=== PATIENT | male | born 1995 | race Caucasian/White ===

== ENCOUNTER 2020-09-01 07:07 | Emergency (ER) | payer OTHER, SELFPAY ==
[2020-09-01 07:12] VITALS: BMI 26.4
--- NOTE | 2020-09-01 07:45 | ED_ITS ---
HPI - General Adult General Chief complaint: Extremity Injury, Upper Stated complaint: left arm injury today Time Seen by Provider: 09/01/20 07:18 Source: patient Mode of arrival: Ambulatory Limitations: no limitations History of Present Illness HPI narrative: 26-year-old male who was weightlifting this morning doing lifts when he had a sudden onset of discomfort and pain and a tearing sensation to his left elbow. He is concerned that he potentially has torn his biceps. He was evaluated by EMS at the scene. He was placed in a sling but came to the emergency department by private vehicle. No prior injury of than the sling no prior interventions Related Data Previous Rx's Medication Instructions Recorded hydrocodone-acetaminophen 1 tab PO Q4-6H PRN #10 tab 09/01/20 Allergies Allergy/AdvReac Type Severity Reaction Status Date / Time Penicillins Allergy Verified 09/01/20 07:12 Review of Systems Constitutional Constitutional: Reports system reviewed and no additional complaints, except as documented Cardiovascular Cardiovascular: Reports system reviewed and no additional complaints, except as documented Respiratory Respiratory: Reports system reviewed and no additional complaints, except as documented Gastrointestinal Gastrointestinal: Reports system reviewed and no additional complaints, except as documented Musculoskeletal Comments: Left elbow pain Integumentary/Breasts Skin/Breast: Reports system reviewed and no additional complaints, except as documented Neurologic Neurologic: Reports system reviewed and no additional complaints, except as documented Hematologic/Lymphatic On Anticoagulants: No Allergic/Immunologic Allergic/Immunologic: Reports system reviewed and no additional complaints, except as documented Patient History Medical History Healthy adult Social History Smoking Status: Never smoker Smoking Status: Never smoker alcohol intake frequency: holidays/special occasions only Substance Use Type: does not use Exam Const General: cooperative Limitations: mental status not altered [facility] Head: normocephalic Resp Effort & Inspection: normal respiratory effort Cardio Pulses: radial pulses present on the left Skin Lesions: no lesions Rashes: no rashes Neuro Sensory Exam: no sensory deficits noted Extrem Other: Left hand unremarkable. Left wrist unremarkable patient has tenderness to palpation over the biceps tendon insertion site. I am unable to palpate a biceps tendon insertion on the left elbow. His proximal left humerus and left shoulder unremarkable. Psych Appearance: grossly normal and well kempt Procedures Orthopedic Splinting/Casting Injury #1: Side: left Upper Extremity Injury Location: elbow Upper Extremity Immobilizer: sling/shoulder immobilizer Post splinting neuro exam: no change Post splinting vascular exam: no change Placed by: Nursing Course Orders Ordered: ED Orders 09/01/20 07:46 XR elbow LT min 3V Stat Discontinued Medications Hydrocodone Bitart/Acetaminophen (Hydrocodone/Acet 5/325 Tablet) 1 tab PO NOW ONE Stop: 09/01/20 07:53 Last Admin: 09/01/20 08:09 Dose: 1 tab Documented by: Medical Decision Making Imaging Data Extremity x-ray #1: Radiologist's Impression: [address] [id number] ReportSigned Patient: Dominik Orozco JR WMR#: [id number]: [id number]:[id number]/Sex: 24 / MDate of Service: 09/01/20Loc: EDAccession Number: [id number] Procedure: XR elbow LT min 3V Ordering Provider: Archie Malone D.O. PROCEDURE: XR ELBOW LT MIN 3V INDICATIONS: pain after weightlifting TECHNIQUE: 3 views of the elbow were acquired. COMPARISON: None. FINDINGS: Bones: No fractures or dislocations. No suspicious bony lesions. Soft tissues: No elbow joint effusion. No suspicious soft tissue calcifications. IMPRESSION: No acute elbow fracture or dislocation. No joint effusion or gross soft tissue abnormality. Dictated by: Neftali Rodriguez M.D. on 09/01/2020 at 8:14 Approved by: Neftali Rodriguez M.D. on 09/01/2020 at 8:15 [facility] Narrative Medical decision making narrative: Patient is neurovascularly intact. There were no fractures on the x-rays. Given his presentation today I do have a high suspicion that he has disrupted the tendon of his biceps at the insertion site distal. He has no bruising over the area. Will send home pain medication and a sling to use for his comfort. He was instructed he would contact the Orthopedic Department on the [facility] for a follow-up. He was given return precautions. He expressed understanding and agreement. Discharge Plan Departure Patient Disposition: Home Clinical Impression: Injury of tendon of biceps Instructions: How to Use a Sling Activity Restrictions/Additional Instructions: I do recommend that you contact try care to find out who your primary doctor his. I also recommend you contact the Orthopedic Department on the [facility] for a follow-up. There were no fractures noted on your x-rays so as tolerated you can use your elbow. Use the sling as directed. Return to the emergency department for any new symptoms Prescriptions: New hydrocodone-acetaminophen 5-325 mg tablet 1 tab PO Q4-6H PRN (Reason: pain) Qty: 10 RF: 0
[2020-09-01] MEDS: HYDROCODONE/ACET 5/325 TABLET 1 TAB PO (08:09)
[2020-09-01 09:04] VITALS: BP 132/84; PULSE 70; RESP 16; TEMP 36.7; O2SAT 99
== END 2020-09-01 09:06 | disposition home or self-care (01) ==
PROVIDERS: Emergency Provider Emergency Medicine
DX: S46.202A Unspecified injury of muscle, fascia and tendon of other parts of biceps, left arm, initial encounter (principal); X50.0XXA Overexertion from strenuous movement or load, initial encounter
CPT/HCPCS: 73080; 99283; 99284

== ENCOUNTER → 2020-09-09 18:55 | Outpatient (CLI) | payer OTHER, SELFPAY ==
--- NOTE | 2020-09-09 18:57 | DI.MRI.S_ITS ---
PROCEDURE: MR ELBOW LT W CON INDICATIONS: PAIN LEFT ELBOW TECHNIQUE: Noncontrast coronal proton density fast spin echo and T2 fast spin echo with fat saturation, axial and sagittal T1 spin echo and T2 fast spin echo with fat saturation through the elbow. COMPARISON: [facility], CR, XR ELBOW LT MIN 3V, 09/01/2020, 7:56. FINDINGS: Image quality: There is mild motion artifact. Lateral structures: The lateral ulnar collateral ligament and radial collateral ligament both appear intact. The annular ligament also appears intact. The overlying common extensor tendon appears within normal limits. Medial structures: The ulnar collateral ligament appears intact. The overlying common flexor tendon appears within normal limits. The ulnar nerve appears normal in size and signal within the cubital tunnel. Anterior structures: There is severe partial tearing of the biceps tendon from its insertion with associated retraction of the majority of the fibers by approximately 4.6 cm. There are a few intact residual fibers. Extensive associated edema and fluid is demonstrated along the course of the biceps tendon with edema tracking proximally along the myotendinous junction of the muscle. The brachialis tendon appears intact. The median and radial neurovascular bundles appear normal; no focal muscle atrophy to suggest nerve impingement. Posterior structures: The conjoint triceps tendon from the long and lateral heads appears intact. The medial head of the triceps tendon also appears normal, with direct muscle insertion onto the olecranon. There is subcutaneous edema along the dorsal aspect of the elbow extending into the visualized forearm as well as the upper arm. Bone and cartilage: No bone marrow contusions or fractures. There is a small elbow joint effusion. No osteochondral lesions. IMPRESSION: 1. Severe partial tearing of the biceps tendon from its insertion with retraction of torn fibers and associated peritendinous edema and fluid as described. There are few residual intact fibers. Dictated by: Jamison Odonnell M.D. on 09/10/2020 at 9:53 Approved by: Jamison Odonnell M.D. on 09/10/2020 at 10:05
== END ==
PROVIDERS: Referring Provider Orthopaedic Surgery; Visit Provider Orthopaedic Surgery
DX: M25.522 Pain in left elbow (principal); S46.212A Strain of muscle, fascia and tendon of other parts of biceps, left arm, initial encounter
CPT/HCPCS: 73221

== ENCOUNTER → 2020-09-16 08:39 | Outpatient (CLI) | payer OTHER, SELFPAY ==
[2020-09-16 11:14] LABS: COVID19 -Nasal RAPID Negative (Negative)
== END ==
PROVIDERS: Visit Provider Nurse Practitioner Family
DX: Z20.822 Contact with and (suspected) exposure to COVID-19 (principal)
CPT/HCPCS: 87635

== ENCOUNTER 2020-09-17 08:31 | Day surgery (SDC) | payer OTHER, SELFPAY ==
[2020-09-17] VITALS (10 sets, daily range): BP systolic 128–151; BP diastolic 61–88; PULSE 69–82; RESP 10–16; TEMP 36.4–36.7; O2SAT 96–100
[2020-09-17] MEDS: LACTATED RINGERS 1,000 ML 42 ML IV (09:03)
--- NOTE | 2020-09-17 09:36 | PM.PREOP ---
Pre-operative Note COVID-19 COVID-19 status: Negative Interval Note History & Physical reviewed/Exam performed by Physician: Yes Changes to H&P: No
[2020-09-17] MEDS: CEFAZOLIN 1 GM VIAL 2 GM IV (10:00)
[2020-09-17] MEDS: BUPIVACAINE 0.5% (PF) VIAL 30 ML INJ (10:14)
[2020-09-17] MEDS: EPINEPHrine 1 MG/ML SUBCUT (10:15)
--- NOTE | 2020-09-17 11:33 | SUR.PHASEI ---
Received to PACU after general anesthesia. Airway patent, self maintained. Report from Dr Amaro and MARY De La Vega.
--- NOTE | 2020-09-17 11:35 | P.OP_ITS ---
Operative Date/Time/Diagnoses Date of procedure: 09/17/20 Time of procedure: 10:00 Pre-op diagnosis: Left distal biceps tear Post-op diagnosis: same Procedure & Clinicians Procedure: Repair of the left distal biceps Same procedure as scheduled: Yes Indications: Traumatic rupture of the left distal biceps Surgeon: Ganesh Marlow Manager [employer]: Rodrigue Banda Anesthesia Type: General Operative Notes Findings: Complete rupture of the distal biceps with minimal retraction. No sign of any other additional injuries to the anterior aspect of the elbow and proximal forearm. Closure Type: primary Specimen(s): none sent Applied: implant(s) (Endo button as well as tenodesis screw) Estimated Blood Loss (mL): 10 Tourniquet time (min): 69 Procedure in detail: On date of service, patient was met in the holding area. Operative site was signed and witnessed by the OR staff. The surgery once again discussed with patient and any remaining questions they had were answered fully. Patient was taken back to the operating theater and placed on the operating table in the supine position. Great care taken to ensure that all bony prominences were properly padded. A well-padded tourniquet was placed up along the upper extremity. A timeout was performed to verify patient's name, procedure, and operative site. A diagonal incision was made starting at proximal medial and going to distal radial. The lateral antecubital cutaneous nerve was identified and protected. There was a complete rupture of the distal biceps but it had only retracted about 2 cm from the bicipital tuberosity. The injury was only about 2 weeks out so there was some scarring but nothing too extensive. No sign of any formation of pseudo tendinous material. Blunt dissection was used to free up any scarring around the distal biceps and this helped improve the overall excursion of the tendon at as well as the musculature. We then turned our attention to the bicipital tuberosity. Blunt dissection was performed allowing us to get down to the proximal radius. It was quite a bit of pseudo tendinous material around the bicipital tuberosity. This was sharply excised and the bony attachment was debrided using a periosteal elevator. Next, A guidewire was placed through the bicipital tuberosity. The proximal aspect of the cortex was drilled to 8 mm. The wound was then loosely irrigated to remove any bony fragments. The distal cortex was drilled to 4 mm. Sutures were then placed through the lateral holes of the Endo button. These were then placed into the guidewire and passed through a bony tunnel and out the forearm. Those marionette Sutures were used to flip the Endobutton and put it into its appropriate position as a buttress. This provided a tom repair of the biceps tendon. Next, a tenodesis screw was placed for additional fixation of the dis florinda biceps tendon. The wound was copiously irrigated again and closed in a layered fashion. Patient was cleaned dried and dressed and he was placed into a splint. Patient was taken to the PACU in stable condition. Postoperatively, neurovascular check was done to the hand. Patient had a 2+ radial pulse and brisk cap refill. Patient had no signs of any posterior interosseous nerve dysfunction. Patient was able to easily fully extend the fingers and the thumb. Post-operative Condition: stable Disposition: PACU Plan for aftercare: Patient will follow our postoperative protocol for distal biceps repair.
--- NOTE | 2020-09-17 11:36 | SUR.PHASEI ---
Pt able to wiggle fingers. Pt states fingers are tingly. Unable to move thumb. Pt states thumb is numb. Will reassess when pt more awake.
--- NOTE | 2020-09-17 11:40 | SUR.PHASEI ---
Dr Marlow at bedside. Pt now able to move thumb.
[2020-09-17] MEDS: OXYCODONE IR 5 MG TABLET PO ×2 (11:48→13:16)
[2020-09-17] MEDS: fentaNYL 100 MCG/2 ML INJ IV (11:53)
== END 2020-09-17 13:25 | disposition home or self-care (01) ==
PROVIDERS: Referring Provider Orthopaedic Surgery; Visit Provider Orthopaedic Surgery
PROC: (CPT 24341; principal; 2020-09-17 10:00)
DX: S46.212A Strain of muscle, fascia and tendon of other parts of biceps, left arm, initial encounter (principal); S50.02XA Contusion of left elbow, initial encounter; Y93.B9 Activity, other involving muscle strengthening exercises
CPT/HCPCS: 24342; J0171; J0690; J1100; J1200; J2250; J2405; J2704; J3010